=== PATIENT | male | born 1955 | race Caucasian/White ===

== ENCOUNTER 2021-04-29 15:25 | Emergency (ER) | payer MEDICAID ==
[~2021-04-29] VITALS: Ht 175.3 cm; Wt 55.0 kg
[2021-04-29 16:06] VITALS: BP 116/74
[2021-04-29] MEDS ORDERED: CEPH250T PO (17:18)
== END 2021-04-29 17:30 | disposition home or self-care (01) ==
LOC: ER 15:26
DX: S01.05XA Open bite of scalp, initial encounter (principal); T33.012A Superficial frostbite of left ear, initial encounter; Z88.5 Allergy status to narcotic agent; Z79.2 Long term (current) use of antibiotics; W57.XXXA Bitten or stung by nonvenomous insect and other nonvenomous arthropods, initial encounter; Y93.89 Activity, other specified; Y92.89 Other specified places as the place of occurrence of the external cause; Y99.8 Other external cause status
CPT/HCPCS: 99283